=== PATIENT | female | born 1975 | race Caucasian/White ===

== ENCOUNTER 2017-06-01 21:30 | Emergency (ER) | payer OTHER ==
[2017-06-01 21:38] VITALS: BMI 34.2
[2017-06-01] MEDS ORDERED: LABETALOL HCL 100 MG TABLET (FP) PO ONE (21:52)
--- NOTE | 2017-06-01 21:59 | PDOC ---
History of Present Illness - History of Present Illness Initial Comments: 06/01/17 21:54 The patient is a 41 35 week female who presents for evaluation of high blood pressure. [place] and states that she was following with an OB physician their and was placed on methyldopa for a history of tachycardia. She states that she measured her BP at home today with a systolic of 146 prompting their presentation to the ED today. She reports that she was walking around all day today and eating hot dogs and [employer]. She denies headache, vision changes, fevers, chills, SOB, chest pain, abdominal pain, vaginal bleeding, vaginal discharge, or changes with urination or bowel movements. She reports no issues with her prior pregnancies as well. <James Hinton - Last Filed: 06/01/17 23:21> <Liyah Roger - Last Filed: 06/02/17 05:13> - General Chief Complaint: Headache Stated Complaint: BLOOD PRESSURE Time Seen by Provider: 06/01/17 21:40 Past History - Suicide/Smoking/Psychosocial Hx Smoking History: Never smoked Have you smoked in the past 12 months: No Information on smoking cessation initiated: No Hx Alcohol Use: No Drug/Substance Use Hx: No Substance Use Type: None <James Hinton - Last Filed: 06/01/17 23:21> <Liyah Roger - Last Filed: 06/02/17 05:13> - Past Medical History Allergies/Adverse Reactions: Allergies Allergy/AdvReac Type Severity Reaction Status Date / Time No Known Allergies Allergy Verified 06/02/17 01:26 Home Medications: Ambulatory Orders Methyldopa [Aldomet -] 250 mg PO TID 06/01/17 Vit Calc,Iron,Folic [ Vitamins] 1 each PO DAILY 06/02/17 Review of Systems - Review of Systems Comments:: 06/01/17 21:59 Constitutional: No fevers, chills, fatigue, malaise HEENT: No Rhinorrhea, nasal congestion, visual changes Cardiovascular: No chest pain, syncope, palpitations, lightheadedness Respiratory: No Cough, SOB, Hemoptysis, Gastrointestinal: No Abdominal pain, Nausea, Vomiting, Constipation, Diarrhea, Melena Genitourinary: No Dysuria, Frequency, Urgency, Hesitancy, Hematuria, Flank pain Musculoskeletal: No Myalgia, arthralgia Skin: No rashes, bruising, pallor Neurologic: No Headache, Dizziness, Numbness, Weakness, or Tingling <James Hinton - Last Filed: 06/01/17 23:21> *Physical Exam - Vital Signs Last Vital Signs Temp Pulse Resp BP Pulse Ox 99.1 F 122 H 18 133/88 98 06/01/17 21:32 06/01/17 21:32 06/01/17 21:32 06/01/17 21:32 06/01/17 21:32 - Physical Exam Comments: 06/01/17 22:00 General Appearance: Nourished. No Apparent Distress HEENT: EOMI, NEHEMIAH. No Pharyngeal Erythema, Tonsillar Exudate, Tonsillar Erythema Neck: No Cervical Lymphadenopathy Respiratory/Chest: Lungs Clear, Normal Breath Sounds. No Crackles, Rales, Rhonchi, Wheezing Cardiovascular: Regular Rhythm, Regular Rate. No Murmur, Gallops, Rubs Gastrointestinal/Abdominal: 35 week gravid uterus. Normal Bowel Sounds, Soft. No Guarding, Rebound, Tenderness Musculoskeletal: No CVA Tenderness Extremity: Normal Capillary Refill Integumentary: Normal Color, Dry, Warm Neurologic: Fully Oriented, Alert, Normal Mood/Affect, Normal Response, <James Hinton - Last Filed: 06/01/17 23:21> - Vital Signs Last Vital Signs Temp Pulse Resp BP Pulse Ox 98.5 F 100 H 20 113/75 100 06/02/17 00:25 06/02/17 00:25 06/02/17 00:25 06/02/17 00:25 06/01/17 23:38 <Liyah Roger - Last Filed: 06/02/17 05:13> Heart Score/ECG Review #1 ECG reviewed & interpreted by me at: 22:57 (Sinus tachycardia) General ECG Interpretation: Sinus Rhythm, Normal Intervals, No acute ischemic changes Compared to previous ECG there are: Previous ECG unavail <James Hinton - Last Filed: 06/01/17 23:21> ED Treatment Course - LABORATORY CBC & Chemistry Diagram: 06/02/17 01:00 - ADDITIONAL ORDERS Additional order review: Laboratory Results 06/02/17 06/02/17 01:00 01:00 Uric Acid 4.2 GGT 13 AST 17 ALT 15 Urine Color Yellow Urine Appearance Slcloudy Urine pH 6.0 Urine Protein Negative Urine Glucose (UA) 2+ H Urine Ketones Trace H Urine Blood Negative Urine Nitrite Negative Urine Bilirubin Negative Urine Urobilinogen Negative 06/02/17 01:00 RBC 3.83 MCV 86.7 MCHC 34.0 RDW 13.2 MPV 8.9 Neutrophils % 70.5 Lymphocytes % 20.9 Monocytes % 7.9 Eosinophils % 0.4 Basophils % 0.3 - Medications Given in the ED: ED Medications Discontinued Medications Generic Name Dose Route Start Last Admin Trade Name Michele PRN Reason Stop Dose Admin Acetaminophen 650 mg 06/01/17 23:20 06/01/17 23:33 Tylenol - PO 06/01/17 23:21 Not Given ONCE ONE Sodium Chloride 500 mls @ 500 mls/hr 06/01/17 22:52 06/01/17 23:09 Normal Saline - IV 06/01/17 23:51 500 mls/hr ASDIR STA Administration Labetalol HCl 100 mg 06/01/17 21:52 06/01/17 22:08 Normodyne - PO 06/01/17 21:53 100 mg ONCE ONE Administration <Liyah Roger - Last Filed: 06/02/17 05:13> Medical Decision Making - Medical Decision Making 06/01/17 22:05 The patient is a 41 35 week female who presents for evaluation of high blood pressure. The patient's bp is 133 systolic here in the ED and she is not complaining of any symptoms here in the ED. She is tachycardic on exam and we will treat with labetolol here in the ed and obtain an EKG. 06/01/17 23:21 Patient reports improvement in her symptoms with labetolol and tylenol as well as a 500 ns bolus. We are comfortable sending the patient to L&D for evaluation. <James Hinton - Last Filed: 06/01/17 23:21> - Medical Decision Making 06/02/17 05:13 Pt seen and examined with the resident. I agree with his exam. Pt treated in the ER and sent up to L+D for further workup. <Liyah Roger - Last Filed: 06/02/17 05:13> *DC/Admit/Observation/Transfer <James Hinton - Last Filed: 06/01/17 23:21> <Liyah Roger - Last Filed: 06/02/17 05:13> Diagnosis at time of Disposition: High blood pressure Qualifiers: Hypertension type: unspecified Qualified Code(s): I10 - Essential (primary) hypertension - Discharge Dispostion Disposition: HOME Condition at time of disposition: Stable - Referrals Referrals: Yandel Thomson MD [Primary Care Provider] - Fred Diggs MD [Emergency Provider] - 1 week (06/02/17 Safely discharged from Labor and delivery. Please see your MD this week ( consulte a judge doctor higinio stern) to follow up with your care. Return to the hospital ([facility]) if you experience (si tienes) lower abdominal pain (dolor abdominal), vaginal bleeding (sangrado vaginal) and/or your water breaks (romper el agua), decrease baby movement (menos movimiento del leticia). )
[2017-06-01] MEDS ORDERED: LABETALOL HCL 100 MG TABLET (FP) ONE (22:06)
[2017-06-01] MEDS ORDERED: SODIUM CHLORIDE 500 ML IV STA (22:52)
[2017-06-01] MEDS ORDERED: ACETAMINOPHEN 325 MG TABLET (FP) PO ONE (23:20)
--- NOTE | 2017-06-01 23:24 | PDOC ---
Attending Attestation - Resident Resident Name: James Hinton - HPI HPI: 06/01/17 23:20 Pt comes with palpitations that she felt after a full day of walking around and shopping. She is 35 weeks and she ate only junk food today while she was out and about. Pt tells me that she normally eat hot dogs and [employer], but that is what she ate today. Pt is tachycardic and HTN in the ER. - Physicial Exam PE: 06/01/17 23:22 A+Ox3; exam normal. No abd or flank tenderness. Pt normally rakes aldomet for BP. Today we gave her Labtalol 100mg IV and we hydrated her a bit. I agree with resident exam. - Medical Decision Making 06/01/17 23:23 Pt is stable to go to L+D for further evaluation. EKG is sinus tahy 119 bpm; pt is stable.
[2017-06-02 01:30] LABS: BASOPHIL 0.3 % (0-2.0); EOSINOPHIL 0.4 % (0-4.5); MCH 29.5 pg (25.7-33.7); MEAN CELL VOLUME 86.7 fl (80-96); MEAN PLT VOLUME 8.9 fl (7.5-11.1); NEUTROPHILS 70.5 % (42.8-82.8); PLATELET COUNT 246 K/MM3 (134-434); RDW 13.2 % (11.6-15.6); WHITE BLOOD COUNT 8.1 K/mm3 (4.0-10.0)
[2017-06-02 01:31] LABS: URINE APPEARANCE SLCLOUDY; URINE BILIRUBIN NEGATIVE (NEGATIVE); URINE BLOOD NEGATIVE (NEGATIVE); URINE COLOR YELLOW; URINE GLUCOSE (UA) 2+ (NEGATIVE); URINE KETONE TRACE (NEGATIVE); URINE NITRITE NEGATIVE (NEGATIVE); URINE PROTEIN NEGATIVE (NEGATIVE); URINE UROBILINOGEN NEGATIVE mg/dL (0.2-1.0)
[2017-06-02 01:56] VITALS: BP 113/75; PULSE 100; TEMP 98.5
[2017-06-02 01:57] LABS: URIC ACID 4.2 mg/dL (2.6-7.2)
[2017-06-02 09:27] LABS: URINE LEUK ESTERASE Negative (NEGATIVE)
--- NOTE | 2017-06-02 10:01 | EKG ---
Test Reason : Blood Pressure : / mmHG Vent. Rate : 113 BPM Atrial Rate : 113 BPM P-R Int : 146 ms QRS Dur : 068 ms QT Int : 326 ms P-R-T Axes : 042 012 044 degrees QTc Int : 447 ms SINUS TACHYCARDIA NONSPECIFIC ST ABNORMALITY ABNORMAL ECG NO PREVIOUS ECGS AVAILABLE Confirmed by RONIT MAKI MD ([id number]) on 06/02/2017 10:01:02 AM Referred By: Confirmed By:RONIT MAKI MD
== END 2017-06-02 04:10 | disposition home or self-care (01) ==
LOC: JER 21:30
PROC: 3E0337Z Introduction of Electrolytic and Water Balance Substance into Peripheral Vein, Percutaneous Approach (ICD-10-PCS; principal; 2017-06-01)
DX: O26.893 Other specified pregnancy related conditions, third trimester (principal); O16.3 Unspecified maternal hypertension, third trimester; Z3A.35 35 weeks gestation of pregnancy
CPT/HCPCS: 36415; 76819-TC; 81003; 82977; 83010; 84450; 84460; 84550; 85025; 85044; 93005; 93010; 96360; 99282-25